=== PATIENT | female | born 2000 | race American Indian/Alaskan Native ===

== ENCOUNTER 2023-01-26 19:14 | Emergency (ER) | payer SELFPAY ==
[2023-01-26] MEDS ORDERED: Meclizine 25 MG Tab PO ONE (19:40)
[2023-01-26] MEDS ORDERED: Ondansetron 4 MG Tab.DIS PO STA (19:41)
[2023-01-26 19:59] LABS: BASOPHILS ABSOLUTE AUTO 0.1 x10-3/uL (0.0-0.1); BASOPHILS PERCENT AUTO 0.6 % (0.2-1.5); EOSINOPHILS ABSOLUTE AUTO 0.1 x10-3/uL (0.0-0.8); EOSINOPHILS PERCENT AUTO 1.2 % (0.6-8.1); HEMATOCRIT 33.5 % (34.2-48.2); HEMOGLOBIN 10.3 g/dL (11.4-15.5); LYMPHOCYTES ABSOLUTE AUTO 2.8 x10-3/uL (1.0-4.4); LYMPHOCYTES PERCENT AUTO 24.8 % (18.4-52.1); MEAN CORPUSCULAR HGB CONC 30.8 g/dL (31.9-34.8); MEAN CORPUSCULAR VOLUME 61.8 fL (76.7-100.5); MEAN PLATELET VOLUME 8.9 fL (7.1-12.4); MONOCYTES ABSOLUTE AUTO 0.7 x10-3/uL (0.3-1.0); MONOCYTES PERCENT AUTO 6.6 % (4.4-15.7); NEUTROPHILS ABSOLUTE AUTO 7.4 x10-3/uL (1.5-6.3); NEUTROPHILS PERCENT AUTO 66.8 % (30.8-76.2); PLATELET COUNT,PLT 322 x10(3)uL (151-488); RED BLOOD CELL COUNT 5.43 x10(6)uL (3.60-5.20); RED CELL DISTRIBUTION WIDTH 19.6 % (12.3-16.5); WHITE BLOOD CELL COUNT,WBC 11.1 x10-3/uL (3.0-10.3)
[2023-01-26 20:01] LABS: BLOOD UREA NITROGEN,BUN 3 mg/dL (7-18); CARBON DIOXIDE,CO2 23 mmol/L (21-32); CHLORIDE,CL 108 mmol/L (100-110); CREATININE 0.6 mg/dL (0.55-1.02); EST CRCL DRUG DOSING (CG) 150.88 mL/min; ESTIMATED GFR 132 mL/min (>60); GLUCOSE RANDOM 84 mg/dL (80-116); POTASSIUM,K 3.5 mmol/L (3.5-5.3); SODIUM,NA 142 mmol/L (135-145)
== END 2023-01-26 21:20 | disposition home or self-care (01) ==
LOC: FB.ED 19:14
DX: H81.11 Benign paroxysmal vertigo, right ear (principal); F17.210 Nicotine dependence, cigarettes, uncomplicated; Z91.048 Other nonmedicinal substance allergy status
CPT/HCPCS: 36415; 70450; 80048; 85025; 93005; 99284; A9270-GY; Q0162